=== PATIENT | male | born 1955 | race Caucasian/White ===

== ENCOUNTER → 2023-01-23 10:47 | Outpatient (CLI) | payer MEDICARE, SELFPAY ==
--- NOTE | ~2023-01-23 | CT_ITS ---
Clinical Indication: Weight loss CT Scan of the Chest, Abdomen, and Pelvis with Contrast: Technique: Contiguous sections were acquired throughout the chest, abdomen, and pelvis after intraven ous administration of 100 cc of Omnipaque 350. Dose reduction technique was used on this scan by leandra jacoboing automated exposure control and iterative reconstruction technique. The dose-length product (DL P) was 461.21 mGy-cm. Findings: There is no evidence of any significant mediastinal, hilar or axillary lymphadenopathy. The mediastin al soft tissues and vascular structures appear normal. There is no evidence of pleural or pericardial effusion. Calcified left upper lobe granuloma noted. Lungs are otherwise clear. The liver, spleen, pancreas, gallbladder, adrenals and kidneys are within normal limits. No evidence of aortic aneurysm. No lymphadenopathy. No bowel obstruction or bowel wall thickening. There is no evidence to suggest acute appendicitis. Urinary bladder is unremarkable. Prostate gland is enlarged. Impression: Enlarged prostate gland. No other significant findings. Reviewed, dictated and finalized at location . Impression: Enlarged prostate gland. No other significant findings.
[2023-01-23 11:29] LABS: Estimated Glomerular Filt Rate > 60
== END ==
PROVIDERS: PCP Nurse Practitioner; Visit Provider Nurse Practitioner
DX: R63.4 Abnormal weight loss (principal); N40.0 Benign prostatic hyperplasia without lower urinary tract symptoms
CPT/HCPCS: 71260; 74177; Q9967

== ENCOUNTER 2025-02-07 10:04 | Outpatient (CLI) | payer MEDICARE, SELFPAY ==
--- NOTE | ~2025-02-07 | XR_ITS ---
[id number] Ordering provider: Jill Curry NP History: . M25.559 - Pain in unspecified hip . Comparison: None. FINDINGS: BONES: No acute fracture or dislocation. JOINT SPACES: Normal. SOFT TISSUES: Normal. IMPRESSION: No acute osseous abnormality left knee. Reviewed, dictated and finalized at location A.
--- NOTE | ~2025-02-07 | XR_ITS ---
XR hip LT min 2V Ordering provider: Jill Curry NP History: . M25.559 - Pain in unspecified hip . Comparison: None. FINDINGS: BONES: No acute fracture or dislocation. HIP JOINT SPACES: Normal. PUBIC SYMPHYSIS: Normal. SOFT TISSUES: Normal. IMPRESSION: No acute osseous abnormality pelvis and left hip. Reviewed, dictated and finalized at location A.
== END 2025-02-07 10:05 | disposition home or self-care (01) ==
PROVIDERS: PCP Nurse Practitioner; Visit Provider Nurse Practitioner
DX: M25.552 Pain in left hip (principal); M25.562 Pain in left knee
CPT/HCPCS: 73502; 73560

== ENCOUNTER 2025-09-02 00:27 | Day surgery (SDC) | payer MEDICARE, SELFPAY ==
[2025-08-10 08:59] VITALS: BMI 20.9
[2025-09-02 06:51] VITALS: BP 98/66; PULSE 106; RESP 18; TEMP 36.1; O2SAT 100
[2025-09-02] MEDS: LACTATED RINGERS 1,000 ML 150 ML IV CONT (07:13)
--- NOTE | 2025-09-02 07:14 | WPDANESEPPF ---
Anes - Initial Pre Proc Eval Procedure: Operation Date: 09/02/25 08:00 Proposed Procedures p Screening Colonoscopy - Ford Sánchez MD Date/Time: 09/02/25 07:14 Surgeon: Ford Sánchez MD Pre Op Diagnosis: Screening Patient Data Age: 70 Gender: M Height: 1.83 m Weight: 64.8 kg Last Vital Signs Temp 36.1 C L 09/02/25 06:51 Pulse 106 H 09/02/25 06:51 Resp 18 09/02/25 06:51 BP 98/66 L 09/02/25 06:51 Pulse Ox 100 09/02/25 06:51 O2 Del Method Room Air 09/02/25 06:51 Allergies Allergy/AdvReac Type Severity Reaction Status Date / Time No Known Allergies Allergy Verified 09/02/25 06:50 Home Medications ?Medication ?Instructions ?Recorded ?Confirmed ?Type multivitamin 1 tablet PO DAILY 11/30/21 09/02/25 History psyllium husk 3.4 gram/5.4 gram 1 tbsp PO DAILY 11/30/21 09/02/25 History oral powder (Metamucil) ascorbic acid (vitamin C) 500 mg 500 mg PO DAILY 12/06/22 09/02/25 History capsule needle (disp) 18 G 18 gauge x 1 #100 ea 08/04/23 02/07/25 Rx (BD Regular [place] [place]) tamsulosin 0.4 mg capsule 0.4 mg PO QHS #90 caps 02/07/25 08/10/25 Rx Patient hx anesthesia problems: none Family hx anesthesia problems: none Results Review: All pre-operative results and documents have been reviewed as part of the pre-operative evaluation. PENDING SALE TO [facility] Past Medical History Medical History BPH (benign prostatic hyperplasia) Long-term current use of testosterone cypionate Family History Family History Father Non-Hodgkin lymphoma Diabetes mellitus Mother Hypertension Social History Social History Smoking status: Never smoker Alcohol intake: current Lack of Transportation: No Lack of Food: Never True Current Housing: I Have Housing Concerned About Future Housing: No Difficulty Paying Gas/Electric Bills: No Difficulty Paying for Meds: No Currently Unemployed: No Education: Master's Degree or Higher Difficulty w/ Childcare or Family Care: No Living arrangements: with family 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 Informed Consent: The patient's anesthetic plan and its attendant risks and benefits were discussed with the patient/family/POA. Questions were solicited and answers provided to the satisfaction of the patient/family/POA.
--- NOTE | 2025-09-02 07:45 | PM.IMHP2 ---
H&P: HPI History of Present Illness Date/Time: 09/02/25 07:45 Chief Complaint: Screening colonoscopy Narrative: This is the patient's 2nd screening colonoscopy. There are no GI symptoms and there is no family history of colorectal cancer. Review of Systems Review of Systems: All systems reviewed & are unremarkable except as noted in HPI and below PMFSH Past Medical History Medical History BPH (benign prostatic hyperplasia) Long-term current use of testosterone cypionate Family History Family History Father Non-Hodgkin lymphoma Diabetes mellitus Mother Hypertension Social History Social History Smoking status: Never smoker Alcohol intake: current Lack of Transportation: No Lack of Food: Never True Current Housing: I Have Housing Concerned About Future Housing: No Difficulty Paying Gas/Electric Bills: No Difficulty Paying for Meds: No Currently Unemployed: No Education: Master's Degree or Higher Difficulty w/ Childcare or Family Care: No Living arrangements: with family 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 Gender identity (if verbalized by the patient): Male Spiritual care concerns: No Agree to blood products: Yes Meds Home Medications and Allergies Home Medications ?Medication ?Instructions ?Recorded ?Confirmed ?Type multivitamin 1 tablet PO DAILY 11/30/21 09/02/25 History psyllium husk 3.4 gram/5.4 gram 1 tbsp PO DAILY 11/30/21 09/02/25 History oral powder (Metamucil) ascorbic acid (vitamin C) 500 mg 500 mg PO DAILY 12/06/22 09/02/25 History capsule needle (disp) 18 G 18 gauge x 1 #100 ea 08/04/23 02/07/25 Rx (BD Regular Bevel [place]) tamsulosin 0.4 mg capsule 0.4 mg PO QHS #90 caps 02/07/25 08/10/25 Rx Allergies Allergy/AdvReac Type Severity Reaction Status Date / Time No Known Allergies Allergy Verified 09/02/25 06:50 Vital Signs Vital Signs - 24 hr 09/02/25 06:51 Temperature 97 F L Pulse Rate 106 H Respiratory Rate 18 Blood Pressure 98/66 L Pulse Oximetry 100 Oxygen Delivery Room Air Exam Const: General: cooperative and healthy appearing Resp: Effort & Inspection: normal respiratory effort and able to speak in complete sentences Auscultation: clear to auscultation bilaterally Cardio: Rate: regular rate Rhythm: regular rhythm GI: Inspection: normal to inspection GI Palp: No No hepatosplenomegaly present Auscultation: normal bowel sounds Rectal Exam: deferred Skin: General skin exam: normal color Psych: Appearance: grossly normal Mental Status: mental status grossly normal Assessment and Plan Assessment and plan (1) Screening for colon cancer: Code(s): Z12.11 - Encounter for screening for malignant neoplasm of colon Status: Acute Assessment and Plan: The patient is deemed a good candidate for the procedure. Consent signed. Will proceed. Prior Studies I have reviewed the following patient records and this information was taken into consideration when formulating the assessment and plan.: previous labs, previous ER visits, previous hospitalizations and previous clinic visits
[2025-09-02 08:08] VITALS: BP 81/52; PULSE 77; RESP 17; O2SAT 100
[2025-09-02 08:18] VITALS: BP 92/60; PULSE 62; RESP 20; O2SAT 100
[2025-09-02 08:28] VITALS: BP 107/64; PULSE 61; RESP 18; O2SAT 100
== END 2025-09-02 08:39 | disposition home or self-care (01) ==
PROVIDERS: PCP Nurse Practitioner; Referring Provider Nurse Practitioner; Visit Provider Internal Medicine Gastroenterology
PROC: 0DJD8ZZ Inspection of Lower Intestinal Tract, Via Natural or Artificial Opening Endoscopic (ICD-10-PCS; CPT 45378; principal; 2025-09-02 08:00)
DX: Z12.11 Encounter for screening for malignant neoplasm of colon (principal); K57.30 Diverticulosis of large intestine without perforation or abscess without bleeding; K64.8 Other hemorrhoids
CPT/HCPCS: G0121; J2003; J2704; J7120